=== PATIENT | male | born 1980 | race Caucasian/White ===

== ENCOUNTER 2016-08-13 12:04 | Emergency (ER) | payer BC ==
[2016-08-13 12:29] VITALS: BP 154/82
[2016-08-13] MEDS ORDERED: Sodium Chloride 0.9% 1,000 ML IV ONE (12:45)
[2016-08-13] MEDS ORDERED: Sodium Chloride 0.9% 10 ML Syringe FLUSH PRN (12:45)
[2016-08-13] MEDS ORDERED: HYDROmorphone 1 MG/ML Syringe IVPUSH ONE ×2 (12:45→13:51)
--- NOTE | 2016-08-13 13:11 | EDM.PDOC ---
ED HPI GENERAL MEDICAL PROBLEM - General Chief Complaint: Abdominal Pain Stated Complaint: ABDOMINAL PAIN Time Seen by Provider: 08/13/16 12:42 Source of Information: Reports: Patient History Limitations: Reports: No Limitations - History of Present Illness INITIAL COMMENTS - FREE TEXT/NARRATIVE: 36-year-old male presents for evaluation and treatment of pain to the left back and flank. Reports the pain began around 8:00 this morning. States he was not doing anything in particular or straining himself. He currently complains of severe stabbing pain to the left flank into his left of his back. Denies any radiation into his groin. States he's never had anything like this before. Denies any chest pain, shortness of breath, chills, nausea, vomiting, dysuria, hematura, diarrhea or constipation. Abdominal Pain Score (Numeric/FACES): 10 - Related Data Allergies Allergy/AdvReac Type Severity Reaction Status Date / Time No Known Allergies Allergy Verified 08/13/16 12:25 Home Meds: Home Meds Acetaminophen/oxyCODONE [Percocet 325-5 MG] 1 tab PO Q4H #25 tablet 08/13/16 [Rx ] Bp Pill? 08/13/16 [History] Tamsulosin HCl [Flomax] 0.4 mg PO DAILY #20 cap.er.24h 08/13/16 [Rx] Past Medical History - Past Health History Medical/Surgical History: Denies Medical/Surgical History Other Respiratory History: states snores and may have sleep apnea. grain dust causes wheezing. Social & Family History - Tobacco Use Smoking Status *Q: Never Smoker Second Hand Smoke Exposure: No - Alcohol Use Days Per Week of Alcohol Use: 1 Number of Drinks Per Day: 1 Total Drinks Per Week: 1 - Recreational Drug Use Recreational Drug Use: No ED ROS GENERAL - Review of Systems Review Of Systems: See Below Constitutional: Denies: Fever, Chills Respiratory: Denies: Shortness of Breath Cardiovascular: Denies: Chest Pain GI/Abdominal: Reports: Abdominal Pain (left sided). Denies: Constipation, Diarrhea, Nausea, Vomiting : Reports: Flank Pain (left). Denies: Dysuria, Hematuria Musculoskeletal: Reports: Back Pain (left mid back) ED EXAM, RENAL/ - Physical Exam Exam: See Below Exam Limited By: No Limitations General Appearance: Alert, WD/WN, No Apparent Distress, Obese Neck: Normal Inspection Respiratory/Chest: No Respiratory Distress, Lungs Clear, Normal Breath Sounds Cardiovascular: Normal Peripheral Pulses, Regular Rate, Rhythm, No Murmur GI/Abdominal: Normal Bowel Sounds, Soft, Non-Tender Back Exam: Normal Inspection. No: CVA Tenderness (L), CVA Tenderness (R) Neurological: Alert, Oriented, Normal Cognition Psychiatric: Normal Affect, Normal Mood Skin Exam: Warm, Dry, Normal Color EKG INTERPRETATION EKG Date: 08/13/16 Time: 12:35 Rhythm: NSR Rate (beats/min): 67 [place]: normal P-wave: present QRS: normal ST-T: normal QT: normal EKG Interpretation Comments: NSR at 67 bpm. Early "r" wave transition. Diffuse early repolization pattern. Non specific interventricular conduction delay V2-V6 , I and II. Reviewed by myself and Dr. Briceño Course - Vital Signs Last Recorded V/S: Last Vital Signs Temp 35.6 C 08/13/16 12:26 Pulse 98 08/13/16 16:46 Resp 16 08/13/16 16:46 BP 154/82 H 08/13/16 12:26 Pulse Ox 100 08/13/16 16:46 - Orders/Labs/Meds Orders: Active Orders 24 hr Category Date Time Status Cardiac Monitoring [RC] . DIRECTED Care 08/13/16 12:45 Active EKG 12 Lead [EKG Documentation Completion] [RC] STAT Care 08/13/16 12:45 Active Peripheral IV Care [RC] . DIRECTED Care 08/13/16 12:45 Active Peripheral IV Insertion Adult [OM.PC] Routine Oth 08/13/16 12:45 Ordered Labs: Laboratory Tests 08/13/16 08/13/16 08/13/16 Range/Units 12:31 12:31 14:58 WBC 10.58 H (4.23-9.07) K/mm3 RBC 4.97 (4.63-6.08) M/mm3 Hgb 15.3 (13.7-17.5) gm/L Hct 45.6 (40.1-51.0) % MCV 91.8 (79.0-92.2) fl MCH 30.8 (25.7-32.2) pg MCHC 33.6 (32.2-35.5) g/dl RDW Std Deviation 41.1 (35.1-43.9) fL Plt Count 235 (163-337) K/mm3 MPV 9.9 (9.4-12.3) fl Neut % (Auto) 80.8 H (34.0-67.9) % Lymph % (Auto) 13.5 L (21.8-53.1) % [place] % (Auto) 5.1 L (5.3-12.2) % Eos % (Auto) 0.3 L (0.8-7.0) Baso % (Auto) 0.1 (0.1-1.2) % Neut # (Auto) 8.55 H (1.78-5.38) K/mm3 Lymph # (Auto) 1.43 (1.32-3.57) K/mm3 [place] # (Auto) 0.54 (0.30-0.82) K/mm3 Eos # (Auto) 0.03 L (0.04-0.54) K/mm3 Baso # (Auto) 0.01 (0.01-0.08) K/mm3 Sodium 141 (136-145) mEq/L Potassium 4.6 (3.5-5.1) mEq/L Chloride 104 (98-107) mEq/L Carbon Dioxide 28 (21-32) mEq/L Anion Gap 13.6 (5-15) BUN 20 H (7-18) mg/dL Creatinine 1.2 (0.7-1.3) mg/dL Est Cr Clr Drug Dosing 95.25 mL/min Estimated GFR (MDRD) > 60 (>60) mL/min BUN/Creatinine Ratio 16.7 (14-18) Glucose 149 H (74-106) mg/dL Calcium 9.0 (8.5-10.1) mg/dL Total Bilirubin 0.4 (0.2-1.0) mg/dL AST 28 (15-37) U/L ALT 43 (16-63) U/L Alkaline Phosphatase 53 (46-116) U/L Troponin I < 0.017 (0.00-0.056) ng/mL C-Reactive Protein < 0.2 (<1.0) mg/dL Total Protein 8.7 H (6.4-8.2) g/dl Albumin 4.5 (3.4-5.0) g/dl Globulin 4.2 gm/dL Albumin/Globulin Ratio 1.1 (1-2) Lipase 78 (73-393) U/L Urine Color Yellow (Yellow) Urine Appearance Slt cloudy H (Clear) Urine pH 5.5 (5.0-8.0) Ur Specific [place] > or = 1.030 (1.005-1.030) Urine Protein 1+ H (Negative) Urine Glucose (UA) Negative (Negative) Urine Ketones Negative (Negative) Urine Occult Blood 2+ H (Negative) Urine Nitrite Negative (Negative) Urine Bilirubin Negative (Negative) Urine Urobilinogen 0.2 (0.2-1.0) Ur Leukocyte Esterase Negative (Negative) Urine RBC 30-40 H (0-5) /hpf Urine WBC 0-5 (0-5) /hpf Ur Epithelial Cells Not seen (0-5) /hpf Urine Bacteria Few (FEW) /hpf Urine Mucus Many H (FEW) /hpf Meds: Medications Discontinued Medications Generic Name Dose Route Start Last Admin Trade Name Antwanq PRN Reason Stop Dose Admin Hydromorphone HCl 1 mg 08/13/16 12:45 08/13/16 13:10 Dilaudid IVPUSH 08/13/16 12:46 1 mg ONETIME ONE Administration Hydromorphone HCl 1 mg 08/13/16 13:51 08/13/16 14:27 Dilaudid IVPUSH 08/13/16 13:52 1 mg ONETIME ONE Administration Sodium Chloride 1,000 mls @ 999 mls/hr 08/13/16 12:45 08/13/16 13:11 Normal Saline IV 08/13/16 13:45 999 mls/hr ONETIME ONE Administration Ketorolac Tromethamine 30 mg 08/13/16 15:00 08/13/16 15:06 Toradol IVPUSH 08/13/16 15:01 30 mg ONETIME ONE Administration Sodium Chloride 10 ml 08/13/16 12:45 08/13/16 13:12 Saline Flush FLUSH 10 ml ASDIRECTED PRN Administration Keep Vein Open - Radiology Interpretation Free Text/Narrative:: CT of the abdomen and pelvis without contrast impression per Dr. Guaman : 1. Slightly prominent left renal pelvis due to proximal obstructing stone located slightly past the UPJ measuring 5mm. 2. calcified gallstones are seen .3 . Other incidental findings. CT Results Date: 08/13/16 - Re-Assessments/Exams Free Text/Narrative Re-Assessment/Exam: 08/13/16 13:51 Labs returned and include the following: White blood cell count mildly elevated at 10.58, hemoglobin 15.3 and platelets 235. CRP within normal limits at less than 0.2. Troponin within normal limits at less than 0.017. Sodium 141, potassium of 4.6 and chloride 104. Anion gap 13.6. Glucose 149. Lipase is 78. Awaiting UA. i discussed the lab and CT results at this patient. At this point, he is having more pain. I will order an additional 1mg IV Dilaudid. 08/13/16 15:00 Pain worsening. 30mg IV toradol ordered. 08/13/16 15:50 UA has 1+ protein and 2+ blood. Negative for nitrates and leukocytes. Will discharge home. Follow-up with urology. [facility] called for appointment. Earliest appointment is August 22. They will call the patient tomorrow to schedule urology follow-up. Discharge instructions as documented. Departure - Departure Time of Disposition: 15:53 Disposition: Home, Self-Care 01 Condition: fair Clinical Impression: Nephrolithiasis - Discharge Information Prescriptions: Acetaminophen/oxyCODONE [Percocet 325-5 MG] 1 tab PO Q4H #25 tablet Tamsulosin HCl [Flomax] 0.4 mg PO DAILY #20 cap.er.24h Instructions: Kidney Stones, [id number] Referrals: Giovanna Hebert PA-C [Primary Care Provider] - Stevo Washington MD [Physician] - Forms: ED Department Discharge, Return to Work/School Form Additional Instructions: He was given medication in the ER that can affect your ability to drive and operate machinery. No driving or operation with 12 hours of taking prescription narcotic pain medication Follow up with urology in one to 2 weeks. [facility] should call you tomorrow. If you do not hear from them please call [phone] to schedule an appointment. Please let them know that you have a 5 mm obstructing stone slightly past the UPJ. Flomax one tab daily. This will help you to urinate. Make sure you are drinking plenty of fluids. Ibuprofen 600 mg every 6 hours. For additional pain relief, Percocet 1-2 tabs every 4-[address] operate machinery within 12 hours of taking the Percocet. Percocet can be habit-forming, I recommend you take as few of these as needed to control your pain. Follow-up with your primary care provider for gallstones once your kidney stones have resolved. Please return to the ER should your symptoms change or worsen. - My Orders Last 24 Hours: My Active Orders 08/13/16 12:45 Cardiac Monitoring [RC] . DIRECTED EKG 12 Lead [EKG Documentation Completion] [RC] STAT Peripheral IV Care [RC] . DIRECTED Peripheral IV Insertion Adult [OM.PC] Routine - Assessment/Plan Last 24 Hours: My Active Orders 08/13/16 12:45 Cardiac Monitoring [RC] . DIRECTED EKG 12 Lead [EKG Documentation Completion] [RC] STAT Peripheral IV Care [RC] . DIRECTED Peripheral IV Insertion Adult [OM.PC] Routine
--- NOTE | 2016-08-13 13:16 | CT ---
CT abdomen and pelvis Technique: Multiple axial sections were obtained from above the kidneys inferiorly through the pubic symphysis. Intravenous and oral contrast was not utilized. Study was performed as a ureteral stone protocol. Findings: Left renal pelvis is mildly prominent. This finding is due to a proximal obstructing stone located slightly past the UPJ measuring approximately 5 mm in size. No additional calcifications are seen along the course of the ureters. No abnormal calcifications are seen within the kidneys. Calcified gallstones are identified within the gallbladder. Visualized lung bases shows nothing acute. Noncontrast appearance of the liver and spleen appears within normal limits. Adrenal glands show no nodule. Pancreas is within normal limits. Aorta shows no aneurysmal dilatation. No retroperitoneal adenopathy or mesenteric abnormalities are seen. Appendix is seen which is normal. Incidental diverticuli are seen within the sigmoid colon and within the descending colon. No pelvic mass or adenopathy is seen. Prostate gland is mildly enlarged with calcifications being seen within the prostate gland. Bone window settings were reviewed which appears within normal limits for the patient's age. Impression: 1. Slightly prominent left renal pelvis due to proximal obstructing stone located slightly past the UPJ measuring 5 mm. 2. Calcified gallstones are seen. 3. Other incidental findings as described above. Diagnostic code #3
[2016-08-13] MEDS ORDERED: Ketorolac 30 MG/ML SDV IVPUSH ONE (15:00)
== END 2016-08-13 16:45 | disposition home or self-care (01) ==
LOC: JD.ED 12:04
DX: N20.0 Calculus of kidney (principal); Z79.899 Other long term (current) drug therapy
CPT/HCPCS: 36415; 74176; 80053; 81001; 83690; 84484; 85025; 86140; 93005; 96361; 96374; 96375; 96376; 99285; J1170; J1885; J7040; J7050; 99284